=== PATIENT | female | born 1995 | race African-American/Black ===

== ENCOUNTER 2025-02-13 09:25 | Inpatient (IN) | payer OTHER ==
[2025-02-13 09:38] VITALS: BMI 21.6
[2025-02-13] MEDS ORDERED: NALOXONE (NARCAN) HCL 4 MG/0.1 ML SPRAY NS PRN (10:01)
[2025-02-13] MEDS ORDERED: IBUPROFEN 600 MG TABLET (FP) PO PRN (10:01)
[2025-02-13] MEDS ORDERED: guaiFENesin 600 MG TABLET.ER (FP) PO PRN (10:01)
[2025-02-13] MEDS ORDERED: DICYCLOMINE HCL 10 MG CAPSULE PO PRN (10:01)
[2025-02-13] MEDS ORDERED: BENZONATATE 200 MG CAPSULE PO PRN (10:01)
[2025-02-13] MEDS ORDERED: BISMUTH SUBSALICYLATE 524 MG/30 ML PO PRN (10:01)
[2025-02-13] MEDS ORDERED: BENZOCAINE/MENTHOL (CHLORASEPTIC ) LOZENGE MM PRN (10:01)
[2025-02-13] MEDS ORDERED: MAGNESIUM HYDROX 2400MG/30ML ORAL SUSPENSION 30 ML CUP PO PRN (10:01)
[2025-02-13] MEDS ORDERED: ONDANSETRON *ODT* 4 MG TABLET SL PRN (10:01)
[2025-02-13] MEDS ORDERED: MAG HYDROX/AL HYDROX/SIMETH 30 ML UNIT-DOSE CUP PO PRN (10:01)
[2025-02-13] MEDS ORDERED: ACETAMINOPHEN 325 MG TABLET (FP) PO PRN (10:01)
[2025-02-13] MEDS ORDERED: POLYETHYLENE GLYCOL (HEALTHYLAX) 3350 17 GM PACKET PO PRN (10:01)
[2025-02-13] MEDS ORDERED: LOPERAMIDE HCL 2 MG CAPSULE PO PRN (10:01)
[2025-02-13] MEDS ORDERED: IBUPROFEN 400 MG TABLET (FP) PO PRN (10:01)
[2025-02-13] MEDS ORDERED: levETIRAcetam 500 MG TABLET (FP) PO ONE (10:33)
[2025-02-13] MEDS ORDERED: TRIMETHOBENZAMIDE HCL 200MG/2ML INJ IM ONE (10:33)
[2025-02-13] MEDS: TRIMETHOBENZAMIDE HCL 200MG/2ML INJ IM ONE (10:39)
[2025-02-13] MEDS: levETIRAcetam 500 MG TABLET (FP) PO SCH (11:16)
[2025-02-13] MEDS: MELATONIN 5 MG TABLETS PO SCH (22:10)
[2025-02-13] MEDS: THIAMINE 100 MG TABLET PO SCH (22:10)
[2025-02-14] MEDS: hydrOXYzine PAMOATE 25 MG CAPSULE (FP) PO PRN (10:56)
[2025-02-14] MEDS: PRENATAL VITAMINS W/ FOLIC ACID TABLET (FP) PO SCH (10:56)
[2025-02-14 12:19] LABS: MCHC 33.9 g/dl (32.2-35.5)
[2025-02-14 12:21] LABS: IMMATURE PLATELET FRACTION # 7.40 x10^3/uL; MEAN CELL VOLUME 81.6 fl (79.4-94.8); MEAN PLT VOLUME 9.9 fl (9.4-12.3); RDW 22.2 % (12.1-16.5)
[2025-02-14 13:33] LABS: GLUCOSE,RANDOM 115 mg/dL (74-106); TOT PROT 7.2 g/dl (6.4-8.2)
[2025-02-14 13:34] LABS: CO2 29 mmol/L (21-32)
[2025-02-14 13:36] LABS: ALK PHOS 120 U/L (40-150)
[2025-02-14 13:38] LABS: SGPT/ALT 43 U/L (0-55)
[2025-02-14 13:39] LABS: CREATININE 0.65 mg/dL (0.55-1.3); SGOT/AST 164 U/L (5-34)
[2025-02-14] MEDS: METHOCARBAMOL 500 MG TABLET PO PRN (22:57)
[2025-02-15 09:00] VITALS: BP 119/100; PULSE 105; RESP 20; TEMP 97.6
[2025-02-15] MEDS: POTASSIUM CHLORIDE ORAL LIQUID 20 MEQ/15 ML PO ONE (10:59)
[2025-02-15] MEDS ORDERED: NALTREXONE HCL 50 MG TABLET PO SCH (11:00)
== END 2025-02-15 12:23 | disposition home or self-care (01) | DRG 775 ==
LOC: YASAS 09:25 → Y6N 10:48
PROVIDERS: ADMIT Psychiatry & Neurology Pain Medicine; ATTEND Counselor Addiction (Substance Use Disorder)
PROC: HZ2ZZZZ Detoxification Services for Substance Abuse Treatment (ICD-10-PCS; principal; 2025-02-13)
DX: F10.230 Alcohol dependence with withdrawal, uncomplicated (principal); F32.9 Major depressive disorder, single episode, unspecified; Z86.69 Personal history of other diseases of the nervous system and sense organs; Z59.02 Unsheltered homelessness
CPT/HCPCS: 36415; 80053; 80307; 85027; 86780; 93005; 93010